=== PATIENT | male | born 1965 | race Caucasian/White ===

== ENCOUNTER 2017-06-11 15:37 | Emergency (ER) | payer MEDICAID, SELFPAY ==
[~2017-06-11] VITALS: Ht 188 cm; Wt 108.0 kg
[2017-06-11 16:03] LABS: HEMATOCRIT 48.3 % (39.2-51.8)
[2017-06-11] MEDS ORDERED: RIVAROXABAN 15 MG TABLET PO ONE (16:10)
[2017-06-11 16:16] LABS: ASPARTATE AMINO TRANSFERASE 12 U/L (15-37); BLOOD UREA NITROGEN 15 mg/dL (7-18)
[2017-06-11 16:29] VITALS: BP 116/77
[2017-06-11] MEDS ORDERED: ACETAMINOPHEN 325 MG TABLET ONE ×2 (16:55→16:57)
== END 2017-06-11 17:04 ==
LOC: ED 16:50
DX: I82.432 Acute embolism and thrombosis of left popliteal vein (principal); Z86.718 Personal history of other venous thrombosis and embolism
CPT/HCPCS: 36415; 80053; 85025; 85610; 99284

== ENCOUNTER 2017-08-07 11:27 | Inpatient (IN) | payer MEDICAID ==
[~2017-08-07] VITALS: Ht 188 cm; Wt 112.7 kg
[2017-08-07] MEDS ORDERED: RIVA20TA PO (12:18)
[2017-08-07] MEDS ORDERED: HYDROmorphone 1 MG/ML, 1ML ONE ×2 (12:23→16:29)
[2017-08-07] MEDS ORDERED: ONDANSETRON 2MG/ML, 2ML ONE (12:23)
[2017-08-07] MEDS ORDERED: CEFTRIAXONE PMX 1GM/50ML 50 ML ONE (12:28)
[2017-08-07] MEDS ORDERED: CEFTRIAXONE PMX 1GM/50ML 50 ML IVPB ONE (12:30)
[2017-08-07] MEDS ORDERED: HYDROmorphone 1 MG/ML, 1ML IVPush PRN (12:30)
[2017-08-07] MEDS ORDERED: SODIUM CHLORIDE FLUSH 10ML SYR IVF ONE ×2 (12:30→15:30)
[2017-08-07] MEDS ORDERED: ONDANSETRON 2MG/ML, 2ML IVPush ONE (12:30)
[2017-08-07 12:44] LABS: HEMATOCRIT 48.4 % (39.2-51.8); HEMOGLOBIN 16.1 g/dL (13.7-18.0)
[2017-08-07 12:48] LABS: BLOOD UREA NITROGEN 10 mg/dL (7-18)
[2017-08-07] MEDS ORDERED: SODIUM CHLORIDE 0.9% 1,000ML IVBOLUS ONE (15:00)
[2017-08-07 16:30] VITALS: BP 134/80
[2017-08-07] MEDS ORDERED: LABETALOL 5MG/ML, 20ML IVPush PRN (16:30)
[2017-08-07] MEDS ORDERED: BISACODYL 10 MG SUPP PR PRN (16:30)
[2017-08-07] MEDS ORDERED: ONDANSETRON 2MG/ML, 2ML IVPush PRN (16:30)
[2017-08-07] MEDS ORDERED: LORazepam 2 MG/ML, 1ML IVPush PRN (16:30)
[2017-08-07] MEDS ORDERED: morphine SULFATE 10 MG/ML, 1ML IVPush PRN (16:30)
[2017-08-07] MEDS ORDERED: ACETAMINOPHEN 325 MG TABLET PO PRN (16:30)
[2017-08-07] MEDS ORDERED: POLYETHYLENE GLYCOL 17 GM PACKET PO PRN (16:30)
[2017-08-07] MEDS: NICOTINE 21 MG/24 HR PATCH.TD24 TD SCH (17:00)
[2017-08-07] MEDS: AMPICILLIN/SULBACTAM 3 GM in SODIUM CHLORIDE 0.9% 100 ML IV SCH (17:33)
[2017-08-07] MEDS: HYDROcodone/APAP 5/325 TABLET PO PRN (17:33)
[2017-08-07] MEDS ORDERED: PHARMACOKINETIC MONITORING MC PRN (18:00)
[2017-08-07] MEDS ORDERED: PHARMACOKINETIC CONSULTATION MC ONE (18:00)
[2017-08-07] MEDS ORDERED: VANCOMYCIN PER PHARMACY MC PRN (18:00)
[2017-08-07] MEDS: RIVAROXABAN 20 MG TABLET PO SCH (18:14)
[2017-08-07 19:07] VITALS: BP 112/66
[2017-08-07] MEDS: VANCOMYCIN 2,000 MG in SODIUM CHLORIDE 0.9% 500 ML IV SCH (20:05)
[2017-08-07] MEDS: SODIUM CHLORIDE FLUSH 10ML SYR IVF SCH (20:06)
[2017-08-07] MEDS ORDERED: DOCUSATE 100 MG CAPSULE PO PRN (21:00)
[2017-08-08] MEDS: AMPICILLIN/SULBACTAM 3 GM in SODIUM CHLORIDE 0.9% 100 ML IV SCH ×5 (00:26→23:15)
[2017-08-08] MEDS: HYDROcodone/APAP 5/325 TABLET PO PRN ×6 (00:28→21:33)
[2017-08-08 04:42] LABS: BLOOD UREA NITROGEN 10 mg/dL (7-18)
[2017-08-08 04:50] LABS: HEMATOCRIT 41.8 % (39.2-51.8)
[2017-08-08 08:56] VITALS: BP 119/68
[2017-08-08] MEDS: SODIUM CHLORIDE FLUSH 10ML SYR IVF SCH ×2 (09:00→21:33)
[2017-08-08] MEDS ORDERED: RIVAROXABAN 20 MG TABLET PO SCH (09:00)
[2017-08-08 13:21] VITALS: BP 127/66
[2017-08-08] MEDS: VANCOMYCIN 2,000 MG in SODIUM CHLORIDE 0.9% 500 ML IV SCH (14:06)
[2017-08-08] MEDS: RIVAROXABAN 20 MG TABLET PO SCH (16:55)
[2017-08-08] MEDS: NICOTINE 21 MG/24 HR PATCH.TD24 TD SCH (16:55)
[2017-08-08 18:52] VITALS: BP 126/70
[2017-08-09 02:00] VITALS: BP 124/79
[2017-08-09] MEDS: HYDROcodone/APAP 5/325 TABLET PO PRN ×5 (03:29→21:01)
[2017-08-09] MEDS: AMPICILLIN/SULBACTAM 3 GM in SODIUM CHLORIDE 0.9% 100 ML IV SCH (04:25)
[2017-08-09 05:17] LABS: BLOOD UREA NITROGEN 13 mg/dL (7-18)
[2017-08-09 07:25] VITALS: BP 120/67
[2017-08-09] MEDS: VANCOMYCIN 2,000 MG in SODIUM CHLORIDE 0.9% 500 ML IV SCH (07:40)
[2017-08-09] MEDS: SODIUM CHLORIDE FLUSH 10ML SYR IVF SCH ×2 (09:00→19:16)
[2017-08-09] MEDS: SULFAMETH./TRIMETHOPRIM DS 800MG/160MG TABLET PO SCH (12:08)
[2017-08-09] MEDS: NICOTINE 21 MG/24 HR PATCH.TD24 TD SCH (12:16)
[2017-08-09 12:50] VITALS: BP 130/79
[2017-08-09] MEDS: RIVAROXABAN 20 MG TABLET PO SCH (16:48)
[2017-08-09 19:44] VITALS: BP 124/73
[2017-08-10] MEDS ORDERED: ONDANSETRON ODT 4 MG ONE (01:51)
[2017-08-10] MEDS: HYDROcodone/APAP 5/325 TABLET PO PRN ×2 (01:52→05:55)
[2017-08-10 05:19] LABS: HEMATOCRIT 44.3 % (39.2-51.8); HEMOGLOBIN 14.8 g/dL (13.7-18.0); WHITE BLOOD COUNT 7.9 x10^3/uL (3.4-10)
[2017-08-10 05:26] LABS: BLOOD UREA NITROGEN 15 mg/dL (7-18)
[2017-08-10 06:45] VITALS: BP 117/75
[2017-08-10] MEDS: SODIUM CHLORIDE FLUSH 10ML SYR IVF SCH (09:00)
[2017-08-10] MEDS: SULFAMETH./TRIMETHOPRIM DS 800MG/160MG TABLET PO SCH (09:17)
[2017-08-10] MEDS ORDERED: TRAM50TA2 PO (10:41)
[2017-08-10] MEDS ORDERED: SULF-169 PO (10:41)
== END 2017-08-10 11:05 | disposition home or self-care (01) | DRG 603 ==
LOC: ED 14:59 → EDIP 15:21 → 4NOR 16:33
PROVIDERS: ADMIT Hospitalist; ATTEND Family Medicine
DX: L03.116 Cellulitis of left lower limb (principal); I82.402 Acute embolism and thrombosis of unspecified deep veins of left lower extremity; I82.439 Acute embolism and thrombosis of unspecified popliteal vein; F15.10 Other stimulant abuse, uncomplicated; F17.210 Nicotine dependence, cigarettes, uncomplicated; Z91.19 Patient's noncompliance with other medical treatment and regimen
CPT/HCPCS: 36415; 80048; 81241; 82040; 83605; 83880; 85025; 85303; 85306; 85598; 85610; 85613; 85670; 85730; 85732; 86146; 86147; 87040; 96361; 96365; 96375; J0295; J0696; J1170; J2405; J3370; J7030; J7040

== ENCOUNTER 2017-08-25 19:28 | Emergency (ER) | payer MEDICAID ==
[~2017-08-25] VITALS: Ht 188 cm; Wt 107.6 kg
[~2017-08-25 19:28] MED LIST: RIVA20TA PO; SULF-169 PO; TRAM50TA2 PO
[2017-08-25 20:07] LABS: HEMATOCRIT 47.3 % (39.2-51.8); HEMOGLOBIN 15.7 g/dL (13.7-18.0); WHITE BLOOD COUNT 8.5 x10^3/uL (3.4-10)
[2017-08-25 20:18] LABS: BLOOD UREA NITROGEN 10 mg/dL (7-18); C-REACTIVE PROTEIN, QUANT 0.35 mg/dL (0.02-0.49)
[2017-08-25 20:32] VITALS: BP 103/69
[2017-08-25] MEDS ORDERED: CLOTRIMAZOLE CRM 1%, 15GM TP ONE (21:00)
== END 2017-08-25 21:11 | disposition home or self-care (01) ==
LOC: ED 21:05
DX: B35.4 Tinea corporis (principal); Z86.718 Personal history of other venous thrombosis and embolism
CPT/HCPCS: 36415; 80048; 82040; 85025; 85651; 86140; 99282; 99284

== ENCOUNTER 2017-09-10 10:42 | Emergency (ER) | payer MEDICAID ==
[~2017-09-10] VITALS: Ht 188 cm; Wt 101.0 kg
[2017-09-10] MEDS ORDERED: SODIUM CHLORIDE 0.9% 1,000ML IVBOLUS ONE (13:00)
[2017-09-10] MEDS ORDERED: SODIUM CHLORIDE FLUSH 10ML SYR IVF ONE (13:00)
[2017-09-10 13:08] LABS: HEMATOCRIT 50.7 % (39.2-51.8); HEMOGLOBIN 17.3 g/dL (13.7-18.0); WHITE BLOOD COUNT 4.5 x10^3/uL (3.4-10)
[2017-09-10 13:29] LABS: BLOOD UREA NITROGEN 12 mg/dL (7-18)
[2017-09-10 13:43] LABS: ASPARTATE AMINO TRANSFERASE 35 U/L (15-37); IS PT STATUS REG ER OR PRE ER? YES
[2017-09-10 15:16] VITALS: BP 106/71
== END 2017-09-10 15:34 | disposition left against medical advice (07) ==
LOC: ED 12:33
DX: R55 Syncope and collapse (principal); R10.9 Unspecified abdominal pain
CPT/HCPCS: 36415; 80053; 84484; 85025; 85610; 85730; 93005

== ENCOUNTER 2020-12-07 14:42 | Inpatient (IN) | payer MEDICAID ==
[~2020-12-07] VITALS: Ht 188 cm; Wt 109.7 kg
[2020-12-07] MEDS ORDERED: ONDANSETRON ODT 4 MG PO ONE (15:00)
[2020-12-07] MEDS ORDERED: ONDANSETRON ODT 8 MG ONE (15:00)
[2020-12-07] MEDS ORDERED: MORPHINE SULFATE 4 MG/ML, 1ML IVPush PRN (15:30)
[2020-12-07] MEDS ORDERED: SODIUM CHLORIDE 0.9% 1,000ML IVBOLUS ONE ×2 (15:30→18:00)
[2020-12-07] MEDS ORDERED: ONDANSETRON 2MG/ML, 2ML ONE ×2 (15:34→17:36)
[2020-12-07] MEDS ORDERED: MORPHINE SULFATE 4 MG/ML, 1ML ONE (15:39)
--- NOTE | 2020-12-07 15:40 | NUR ---
ASSUMED CARE OF PT AT THIS TIME. RECEIVED REPORT FROM MARIAA CONTRERAS. PT RESTING IN [facility] AT THIS TIME, MONITORING IN PLACE.
[2020-12-07 15:54] LABS: BASOPHILS % (AUTO) 0 % (0-1); EOSINOPHILS % (AUTO) 0 % (1-7); LYMPHOCYTES % (AUTO) 7 % (22-44); MEAN CORPUSCULAR HEMOGLOBIN 32.7 pg (27.5-34.5); MEAN CORPUSCULAR HGB CONC 33.2 g/dL (33.2-36.2); MEAN PLATELET VOLUME 8.4 fL (7.4-10.4); MONOCYTES % (AUTO) 7 % (2-9); NEUTROPHILS % (AUTO) 86 % (42-75); PLATELET COUNT 263 x10^3/uL (130-400); RED BLOOD COUNT 6.05 x10^6/uL (4.38-5.82); RED CELL DISTRIBUTION WIDTH 14.4 % (9.4-14.8)
[2020-12-07 15:55] LABS: ALANINE AMINOTRANSFERASE 52 U/L (12-78); ALBUMIN 3.8 g/dL (3.4-5.0); ANION GAP 10 mmol/L (5-15); CALCIUM 9.1 mg/dL (8.5-10.1); CHLORIDE 105 mmol/L (98-107); CREATININE 1.76 mg/dL (0.7-1.3)
--- NOTE | 2020-12-07 15:55 | NUR ---
PT EDUCATED ON NPO DIET STATUS, PT STATES "I WILL FING DRINK OUT OF THE SINK IF I WANT. YOU FING NURSE CAN'T TELL ME WHAT TO DO". PT EDUCATED TO PLEASE NOT USE CURSE WORDS AND OF IMPORTANCE OF MAINTAINING NPO STATUS. PROVIDED MADE AWARE.
[2020-12-07 15:57] LABS: MD NO
[2020-12-07 15:58] LABS: ALKALINE PHOSPHATASE 127 U/L (45-117); BILIRUBIN,TOTAL 0.9 mg/dL (0.2-1.0); TOTAL PROTEIN 8.3 g/dL (6.4-8.2)
--- NOTE | 2020-12-07 16:01 | NUR ---
PT STATES UNABLE TO PROVIDE URINE SAMPLE AT THIS TIME.
--- NOTE | 2020-12-07 16:29 | NUR ---
PT TO CT AT THIS TIME.
[2020-12-07] MEDS ORDERED: SODIUM CHLORIDE 0.9% 1,000 ML IV ONE ×2 (16:30→20:00)
[2020-12-07] MEDS ORDERED: OMNIPAQUE 350 MG/ML, 100ML BOTTLE ONE (16:49)
[2020-12-07] MEDS ORDERED: ONDANSETRON 2MG/ML, 2ML IVPush ONE (18:00)
[2020-12-07] MEDS ORDERED: SODIUM CHLORIDE FLUSH 10ML SYR IVF PRN (20:00)
[2020-12-07] MEDS ORDERED: ONDANSETRON 2MG/ML, 2ML IVPush PRN (20:30)
[2020-12-07 20:42] VITALS: BP 99/66
[2020-12-07] MEDS: morphine SULFATE 10 MG/ML, 1ML IVPush PRN (21:25)
[2020-12-07] MEDS: SODIUM CHLORIDE 0.9% 1,000 ML IV SCH (21:26)
[2020-12-07] MEDS: NICOTINE 21 MG/24 HR PATCH.TD24 TD SCH (22:01)
[2020-12-07 22:40] LABS: MICROSCOPIC NOT IND
[2020-12-07] MEDS: ALUMINUM/MAG/SIMETHICONE 30 ML UDC PO PRN (23:20)
[2020-12-08] MEDS: morphine SULFATE 10 MG/ML, 1ML IVPush PRN ×5 (00:26→19:17)
[2020-12-08 01:23] LABS: CLOSTRIDIUM DIFFICILE TOXIN NEGATIVE (Negative)
[2020-12-08 01:24] LABS: CLOSTRIDIUM DIFFICILE ANTIGEN NEGATIVE
[2020-12-08 02:50] VITALS: BP 104/69
[2020-12-08 05:00] LABS: MEAN CORPUSCULAR HEMOGLOBIN 33.5 pg (27.5-34.5); MEAN CORPUSCULAR HGB CONC 34.4 g/dL (33.2-36.2); MEAN PLATELET VOLUME 7.8 fL (7.4-10.4); PLATELET COUNT 204 x10^3/uL (130-400); RED BLOOD COUNT 4.68 x10^6/uL (4.38-5.82); RED CELL DISTRIBUTION WIDTH 14.2 % (9.4-14.8)
[2020-12-08 05:15] LABS: CHLORIDE 109 mmol/L (98-107)
[2020-12-08] MEDS: SODIUM CHLORIDE 0.9% 1,000 ML IV SCH ×3 (05:22→22:42)
[2020-12-08 05:23] LABS: ANION GAP 6 mmol/L (5-15); CALCIUM 8.5 mg/dL (8.5-10.1); CREATININE 1.67 mg/dL (0.7-1.3)
[2020-12-08 05:38] LABS: MD YES
[2020-12-08 05:42] LABS: EOS#(MANUAL) 0.19 x10^3/uL (0.0-0.4); EOS% (MANUAL) 2 % (1-7); LYMPH#(MANUAL) 0.68 x10^3/uL (1-3.4); LYMPHS% (MANUAL) 7 % (22-44); MONOS#(MANUAL) 1.46 x10^3/uL (0.3-2.7); MONOS% (MANUAL) 15 % (2-9); REACTIVE LYMPHS % (MANUAL) 1 % (0-0)
[2020-12-08 05:44] LABS: BAND#(MANUAL) 2.81 x10^3/uL; BANDS%(MANUAL) 29 % (0-7); SEG#(MANUAL) 4.46 x10^3/uL (1.8-6.8); SEGS% (MANUAL) 46 % (42-75)
[2020-12-08 05:45] LABS: <PLATELET ESTIMATE> ADEQUATE; <PLT MORPHOLOGY> NORMAL PLT MORPH; <RBC MORPHOLOGY> NORMAL
[2020-12-08] MEDS: ALUMINUM/MAG/SIMETHICONE 30 ML UDC PO PRN ×2 (07:35→21:00)
[2020-12-08 08:37] VITALS: BP 134/83
[2020-12-08] MEDS: RIVAROXABAN 20 MG TABLET PO SCH (08:44)
[2020-12-08 08:57] LABS: CRYPTOSPORIDIUM ANTIGEN Negative (Negative)
[2020-12-08] MEDS: METRONIDAZOLE PMX 500MG/100ML 100 ML IV SCH ×2 (08:59→16:23)
[2020-12-08] MEDS: CEFTRIAXONE PMX 1GM/50ML 50 ML IV SCH (09:58)
[2020-12-08 15:49] VITALS: BP 125/76
[2020-12-08 18:53] VITALS: BP 114/72
[2020-12-08] MEDS: NICOTINE 21 MG/24 HR PATCH.TD24 TD SCH (21:00)
[2020-12-09] MEDS: morphine SULFATE 10 MG/ML, 1ML IVPush PRN ×6 (00:10→22:44)
[2020-12-09] MEDS: METRONIDAZOLE PMX 500MG/100ML 100 ML IV SCH ×3 (00:10→16:15)
[2020-12-09 00:15] VITALS: BP 115/72
[2020-12-09 05:18] LABS: MEAN CORPUSCULAR HEMOGLOBIN 33.2 pg (27.5-34.5); MEAN CORPUSCULAR HGB CONC 34.1 g/dL (33.2-36.2); MEAN PLATELET VOLUME 7.8 fL (7.4-10.4); PLATELET COUNT 179 x10^3/uL (130-400); RED BLOOD COUNT 4.07 x10^6/uL (4.38-5.82)
[2020-12-09 05:22] LABS: CHLORIDE 116 mmol/L (98-107)
[2020-12-09 05:28] LABS: ALANINE AMINOTRANSFERASE 26 U/L (12-78); ALBUMIN 2.8 g/dL (3.4-5.0); ALKALINE PHOSPHATASE 67 U/L (45-117); ANION GAP 6 mmol/L (5-15); BILIRUBIN,TOTAL 0.4 mg/dL (0.2-1.0); CALCIUM 7.7 mg/dL (8.5-10.1); CREATININE 1.05 mg/dL (0.7-1.3); TOTAL PROTEIN 5.7 g/dL (6.4-8.2)
[2020-12-09 05:55] LABS: MD YES
[2020-12-09 05:57] LABS: BAND#(MANUAL) 1.19 x10^3/uL; BANDS%(MANUAL) 17 % (0-7); EOS#(MANUAL) 0.28 x10^3/uL (0.0-0.4); EOS% (MANUAL) 4 % (1-7); LYMPH#(MANUAL) 1.33 x10^3/uL (1-3.4); LYMPHS% (MANUAL) 19 % (22-44); MONOS#(MANUAL) 1.26 x10^3/uL (0.3-2.7); MONOS% (MANUAL) 18 % (2-9); SEG#(MANUAL) 2.94 x10^3/uL (1.8-6.8); SEGS% (MANUAL) 42 % (42-75)
[2020-12-09 05:58] LABS: <PLATELET ESTIMATE> ADEQUATE; <PLT MORPHOLOGY> NORMAL PLT MORPH; <RBC MORPHOLOGY> NORMAL
[2020-12-09] MEDS: SODIUM CHLORIDE 0.9% 1,000 ML IV SCH ×2 (07:50→15:50)
[2020-12-09 08:11] VITALS: BP 124/82
[2020-12-09] MEDS: RIVAROXABAN 20 MG TABLET PO SCH (08:44)
[2020-12-09] MEDS: CEFTRIAXONE PMX 1GM/50ML 50 ML IV SCH (11:07)
[2020-12-09 12:44] VITALS: BP 114/73
[2020-12-09 19:39] VITALS: BP 134/64
[2020-12-09] MEDS: NICOTINE 21 MG/24 HR PATCH.TD24 TD SCH (20:57)
[2020-12-09] MEDS ORDERED: MELATONIN 5 MG TABLET PO PRN (21:30)
[2020-12-10] MEDS: METRONIDAZOLE PMX 500MG/100ML 100 ML IV SCH ×3 (00:20→16:29)
[2020-12-10 00:22] VITALS: BP 98/58
[2020-12-10] MEDS: morphine SULFATE 10 MG/ML, 1ML IVPush PRN ×5 (03:25→19:29)
[2020-12-10] MEDS: SODIUM CHLORIDE 0.9% 1,000 ML IV SCH (04:16)
[2020-12-10 05:32] LABS: CHLORIDE 111 mmol/L (98-107)
[2020-12-10 05:36] LABS: BASOPHILS % (AUTO) 1 % (0-1); EOSINOPHILS % (AUTO) 3 % (1-7); LYMPHOCYTES % (AUTO) 23 % (22-44); MEAN CORPUSCULAR HEMOGLOBIN 32.8 pg (27.5-34.5); MEAN CORPUSCULAR HGB CONC 33.5 g/dL (33.2-36.2); MONOCYTES % (AUTO) 12 % (2-9); NEUTROPHILS % (AUTO) 61 % (42-75); PLATELET COUNT 166 x10^3/uL (130-400); RED BLOOD COUNT 4.13 x10^6/uL (4.38-5.82); RED CELL DISTRIBUTION WIDTH 14.2 % (9.4-14.8)
[2020-12-10 05:37] LABS: ANION GAP 6 mmol/L (5-15); CREATININE 1.08 mg/dL (0.7-1.3)
[2020-12-10 05:38] LABS: MD NO
[2020-12-10] MEDS: RIVAROXABAN 20 MG TABLET PO SCH (08:05)
[2020-12-10 09:15] VITALS: BP 109/67
[2020-12-10] MEDS: CEFTRIAXONE PMX 1GM/50ML 50 ML IV SCH (10:13)
[2020-12-10 13:55] VITALS: BP 110/74
[2020-12-10 19:39] VITALS: BP 121/75
[2020-12-10] MEDS: NICOTINE 21 MG/24 HR PATCH.TD24 TD SCH (22:00)
[2020-12-11] MEDS: METRONIDAZOLE PMX 500MG/100ML 100 ML IV SCH ×2 (00:26→07:58)
[2020-12-11] MEDS: morphine SULFATE 10 MG/ML, 1ML IVPush PRN ×3 (00:53→10:07)
[2020-12-11 05:13] LABS: BASOPHILS % (AUTO) 1 % (0-1); EOSINOPHILS % (AUTO) 4 % (1-7); LYMPHOCYTES % (AUTO) 25 % (22-44); MEAN CORPUSCULAR HGB CONC 34.6 g/dL (33.2-36.2); MEAN PLATELET VOLUME 8.1 fL (7.4-10.4); MONOCYTES % (AUTO) 12 % (2-9); NEUTROPHILS % (AUTO) 58 % (42-75); PLATELET COUNT 173 x10^3/uL (130-400); RED BLOOD COUNT 4.15 x10^6/uL (4.38-5.82); RED CELL DISTRIBUTION WIDTH 13.8 % (9.4-14.8)
[2020-12-11 05:26] LABS: ANION GAP 6 mmol/L (5-15); CALCIUM 8.4 mg/dL (8.5-10.1); CHLORIDE 109 mmol/L (98-107)
[2020-12-11 05:27] LABS: CREATININE 1.07 mg/dL (0.7-1.3)
[2020-12-11 06:38] LABS: MD SCAN
[2020-12-11] MEDS: RIVAROXABAN 20 MG TABLET PO SCH (07:58)
[2020-12-11 08:04] VITALS: BP 119/80
[2020-12-11] MEDS: CEFTRIAXONE PMX 1GM/50ML 50 ML IV SCH (10:04)
[2020-12-11] MEDS ORDERED: METR500T PO ×2 (10:13)
[2020-12-11] MEDS ORDERED: CEFD300C37 PO ×2 (10:13)
[2020-12-11] MEDS ORDERED: FLU VACC QS2020-21(6MOS UP)/PF 60MCG/0.5 ML SYR IM-VACC ONE (10:30)
[2020-12-11] MEDS ORDERED: AMOX1TAB64 PO (11:52)
== END 2020-12-11 12:50 | disposition home or self-care (01) | DRG 249 ==
LOC: ED 15:12 → EDIP 19:46 → 3N 20:47 → DCLOUNGE 12-11 12:34
PROVIDERS: ADMIT Family Medicine; ATTEND Family Medicine
DX: K52.9 Noninfective gastroenteritis and colitis, unspecified (principal); D72.825 Bandemia; D75.89 Other specified diseases of blood and blood-forming organs; E86.0 Dehydration; F17.210 Nicotine dependence, cigarettes, uncomplicated; L03.115 Cellulitis of right lower limb; L03.116 Cellulitis of left lower limb; N17.0 Acute kidney failure with tubular necrosis; R79.89 Other specified abnormal findings of blood chemistry; F19.10 Other psychoactive substance abuse, uncomplicated; R91.1 Solitary pulmonary nodule; N18.9 Chronic kidney disease, unspecified; Z86.718 Personal history of other venous thrombosis and embolism; Z23 Encounter for immunization; Z98.1 Arthrodesis status; Z79.899 Other long term (current) drug therapy
CPT/HCPCS: 36415; 74021; 74177; 80048; 80053; 81003; 82607; 83605; 83690; 85025; 87046; 87324; 87328; 87329; 87427; 89055; 90686; 96374; 96376; 99285; G0378; J0696; Q0162; Q9967; J2270; J7030

== ENCOUNTER 2021-03-29 21:27 | Emergency (ER) | payer MEDICAID ==
[~2021-03-29] VITALS: Ht 188 cm; Wt 102.0 kg
[~2021-03-29 21:27] MED LIST changes: +AMOX1TAB64 PO; +CEFD300C37 PO; +METR500T PO
--- NOTE | 2021-03-29 22:08 | NUR ---
PT CAME TO TRIAGE DOOR AND ASKED US TO CALL AN AMBULANCE FOR HIM TO GO TO ANOTHER HOSPITAL. PT EDUCATED THAT IS NOT A SERVICE WE OFFER TO PATIENTS.
--- NOTE | 2021-03-29 23:00 | NUR ---
PT AMBULATORY TO ROOM, REQUESTING WATER. AWARE NEEDS TO BE EVAULATED BY MD PRIOR TO FOOD OR DRINKS. REFUSING TO CHANGE.."I DONT NEED TO BE EXAMINED, IM JUST SHITTING MYSELF".
[2021-03-29] MEDS ORDERED: ONDANSETRON 2MG/ML, 2ML IVPush ONE (23:30)
[2021-03-29] MEDS ORDERED: SODIUM CHLORIDE FLUSH 10ML SYR IVF ONE (23:30)
[2021-03-29] MEDS ORDERED: SODIUM CHLORIDE 0.9% 1,000ML IVBOLUS ONE (23:30)
[2021-03-29] MEDS ORDERED: DICYCLOMINE 10 MG/ML, 2ML IM ONE (23:30)
--- NOTE | 2021-03-29 23:30 | NUR ---
Patient acting angry toward staff. Advised an IV is to be placed in order to give meds and fluids. Patient agreed.
[2021-03-29] MEDS ORDERED: ONDANSETRON 2MG/ML, 2ML ONE (23:31)
[2021-03-29] MEDS ORDERED: DICYCLOMINE 10 MG/ML, 2ML ONE (23:31)
--- NOTE | 2021-03-29 23:52 | NUR ---
IV established. Patient medicated per dec.
[2021-03-30 00:05] LABS: BASOPHILS % (AUTO) 0 % (0-1); EOSINOPHILS % (AUTO) 0 % (1-7); LYMPHOCYTES % (AUTO) 4 % (22-44); MEAN CORPUSCULAR HEMOGLOBIN 32.9 pg (27.5-34.5); MEAN CORPUSCULAR HGB CONC 33.8 g/dL (33.2-36.2); MEAN PLATELET VOLUME 7.9 fL (7.4-10.4); MONOCYTES % (AUTO) 4 % (2-9); NEUTROPHILS % (AUTO) 92 % (42-75); PLATELET COUNT 235 x10^3/uL (130-400); RED BLOOD COUNT 5.33 x10^6/uL (4.38-5.82)
--- NOTE | 2021-03-30 00:15 | NUR ---
Attempted new set of vitals. Patient c/o the cuff being too tight. Unable to get an accurate BP.
[2021-03-30 00:16] LABS: ALKALINE PHOSPHATASE 109 U/L (45-117); BILIRUBIN,TOTAL 0.6 mg/dL (0.2-1.0)
[2021-03-30 00:19] LABS: ALANINE AMINOTRANSFERASE 35 U/L (12-78); ALBUMIN 3.9 g/dL (3.4-5.0); ANION GAP 7 mmol/L (5-15); CALCIUM 9.2 mg/dL (8.5-10.1); CHLORIDE 107 mmol/L (98-107); CREATININE 1.42 mg/dL (0.7-1.3)
[2021-03-30] MEDS ORDERED: OMNIPAQUE 350 MG/ML, 100ML BOTTLE ONE (00:54)
--- NOTE | 2021-03-30 02:11 | NUR ---
PT DEFECATED ALL OVER THE FLOOR, WHEN THIS RN WALKED IN ASKED WHAT HAPPEND PT YELLED, "WHAT DO YOU THINK HAPPENED ASSHOLE?!", THIS RN STATED THAT THIS RN WAS JUST TRYING TO HELP, PT STATED HE WANTED SOME ICE CHIPS BUT THIS RN STATED THAT HE HAD TO CHECK WITH THE DOCTOR FIRST AND THEN PT JUST SIGHED AND ROLLED OVER IN HIS BED AND WENT TO SLEEP
--- NOTE | 2021-03-30 02:55 | NUR ---
PT STATES HE HAS BEEN THROWING UP NON STOP BUT THIS RN GAVE HIM 2 CANS OF SPRITE AND PT DRANK THEM EFFORTLESSLY, PT STATES HE WANTS TO SPEAK TO A DOCTOR, DOCTOR NOTIFIED, PT TOLD THAT THE SCRIPTS THAT HAVE BEEN GIVEN TO HIM WILL HELP HIM FEEL BETTER, PT STATED "YOU COULD JUST THROW THOSE AWAY, IM NOT GOING TO FILL THEM", PT COMPLAINING OF GETTING DISCHARGED AND THAT HE HASNT GOTTEN THE CARE HE NEEDS BUT PT LITERALLY YELLED AT EVERY RN THAT WENT INTO HIS ROOM AND DEFECATED ON THE FLOOR.
[2021-03-30 02:58] VITALS: BP 110/64
== END 2021-03-30 03:08 | disposition home or self-care (01) ==
LOC: ED 22:00
DX: K52.9 Noninfective gastroenteritis and colitis, unspecified (principal); E86.0 Dehydration; R11.2 Nausea with vomiting, unspecified; R10.84 Generalized abdominal pain; R91.8 Other nonspecific abnormal finding of lung field; Z86.718 Personal history of other venous thrombosis and embolism
CPT/HCPCS: 36415; 74177; 80053; 83690; 85025; 96372; 96374; 99285; J0500; J2405; J7030; Q9967